=== PATIENT | male | born 1960 | race Two or more races ===

== ENCOUNTER 2016-10-10 07:28 | Emergency (ER) | payer SELFPAY ==
[2016-10-10] MEDS ORDERED: IOPAMIDOL 370 (76%) 100 ML VIAL IV ONE (07:29)
[2016-10-10] MEDS ORDERED: SODIUM CHLORIDE 0.9% 1,000 ML ONE ×2 (07:58→09:19)
[2016-10-10] MEDS ORDERED: ACETAMINOPHEN 500 MG TABLET ONE (07:58)
[2016-10-10] MEDS ORDERED: ONDANSETRON 4 MG/2ML 2 ML VIAL ONE (07:58)
[2016-10-10 08:01] LABS: ABSOLUTE NEUTROPHIL COUNT 11.5 K/mm3 (1.8-7.7); BASO % 0.2 % (0.2-1.0); EOS % 0.2 % (0.9-2.9); HEMOGLOBIN 16.4 gm/l (14.0-18.0); IMM NEUT% 0.3 % (0-1); LYMPH # 0.4 (1.0-4.8); LYMPH % 3.4 % (15-45); MEAN CORPUSCULAR HEMOGLOBIN 31.1 pg (27.0-31.0); MEAN CORPUSCULAR HGB CONC 34.9 g/dl (33.0-37.0); MEAN PLATELET VOLUME 9.4 fl (7.4-10.4); MONO # 0.5 (0.0-0.8); MONO % 4.1 % (4-12); NEUT % 91.8 % (43-75); PLATELET COUNT 219 K/mm3 (130-400); RED CELL DISTRIBUTION WIDTH 13.1 % (11.5-14.5)
[2016-10-10 08:34] LABS: ALB/GLOB RATIO 1.3 (>1.0); ALBUMIN 4.5 gm/dL (3.5-5.7); CALCIUM 9.8 mg/dL (8.6-10.3)
--- NOTE | 2016-10-10 08:45 | RAD ---
CHEST - 2 VIEWS COMPARISON: Chest and left ribs, 11/20/2010 HISTORY: Cough for one month. FINDINGS: Views: Frontal and lateral chest Lungs: Normal Heart and vessels: Normal Trachea and bronchi: Normal Mediastinum and rod: Normal Costophrenic sulci: Normal Chest wall and bones: No acute finding. Degenerative osteophytes in the thoracic spine. T11 hemivertebra. Upper abdomen: Normal. IMPRESSION: Negative 2 view chest.
[2016-10-10 09:01] LABS: SPECIFIC GRAVITY 1.025 (1.001-1.030); URINE BILIRUBIN NEGATIVE (NEGATIVE); URINE BLOOD NEGATIVE (NEGATIVE); URINE GLUCOSE (UA) NEGATIVE (NEGATIVE); URINE LEUKOCYTE ESTERASE NEGATIVE (NEGATIVE); URINE NITRITE NEGATIVE (NEGATIVE); URINE PROTEIN 1+ (NEGATIVE); URINE UROBILINOGEN NORMAL (0-1 mg/dl)
[2016-10-10 09:09] LABS: URINE APPEARANCE HAZY; URINE COLOR YELLOW
[2016-10-10 09:16] LABS: NEUTROPHILS 83 % (43-75); TOTAL CELLS COUNTED 100
[2016-10-10 09:16] LABS: URINE BACTERIA RARE; URINE EPITHELIAL CELLS 0-1 /hpf; URINE MUCUS 3+; URINE RBC 0-1 /hpf; URINE WBC 0-1 /hpf
[2016-10-10 09:17] LABS: BAND 12 % (0-10); BASOPHIL 0 % (0-1); EOSINOPHIL 0 % (1-3); LYMPHOCYTE 3 % (15-45); MONOCYTE 2 % (4-12); PLATELET ESTIMATE NORMAL (NORMAL)
--- NOTE | 2016-10-10 10:32 | CT ---
ABD/PELVIS W/ CON COMPARISON: Chest 2 views, 10/10/2016 HISTORY: 55-year-old male who speaks primarily of [place] dialect from [place] presents with one day of abdominal pain, vomiting, chills, and weakness. Pain greatest in the periumbilical region. Technique: No oral contrast. Intravenous injection 100 mL Isovue 370. Using a [employer] Aquilion [address] scanner, images were obtained from the diaphragm to the floor the pelvis. An automated dose reduction technique was used to minimize patient radiation dose. Dose information: CTDIvol (mGy): 15.20 DLP(mGycm): 794.10 FINDINGS: Lung bases: Normal. Inferior mediastinum and heart: Normal. Liver: In the left lobe adjacent to the gallbladder is a 14 mm nonenhancing lesion. Gallbladder:Normal. Bile ducts: Normal. Pancreas: Normal. Spleen: Normal. Adrenal glands: Normal. Kidneys: 17 mm simple cyst of the left kidney. Ureters: Normal Urinary bladder: Normal. Prostate gland and seminal vesicles: Normal. Blood vessels: Normal Lymph nodes: Normal Stomach: Some fluid in the lumen. No evidence of ulcer or mass. Duodenum: Normal. Small intestine: There is some fluid in the lumen without distention. Appendix: Normal Colon: Normal Abdominal wall and supporting musculature: Normal Bones: T11 hemivertebra. Moderate degenerative changes. IMPRESSION: 1. In the left lobe of the liver adjacent to the gallbladder is a 14 mm nonenhancing lesion. Differential diagnosis includes infection/abscess, hemangioma, or cyst. 2. 17 mm simple cyst of the left kidney. 3. Fluid in the lumen of the stomach and the small intestine, which can be cause by a viral gastroenteritis. 4. T11 hemivertebra. Moderate degenerative changes throughout the spine. The results were discussed with Ned Rodriguez M.D. 10/10/2016 at 10:25
== END 2016-10-10 11:35 | disposition home or self-care (01) ==
LOC: ED 07:28
DX: R10.9 Unspecified abdominal pain (principal); R11.10 Vomiting, unspecified
CPT/HCPCS: 83605; 83690; 82150; 85025; 80053; 87880; 81001; 71020; 74177; 99284 ×2; 96374; 96361 ×3; A9270; J2405; J7030 ×2; Q9967